=== PATIENT | male | born 1965 | race Caucasian/White ===

== ENCOUNTER 2024-08-11 22:42 | Inpatient (IN) | payer OTHER, SELFPAY ==
[2024-08-11 15:04] VITALS: BP 136/100
[2024-08-11 15:26] LABS: % Basophils 0.3 % (0-2); % Eosinophils 0.4 % (0-6); % Immature Granulocytes 0.4 % (0-0.5); % Lymphocytes 19.9 % (20.5-51.1); % Monocytes 8.5 % (1.7-9.3); % Neutrophils 70.5 % (42.2-75.2); Absolute Eosinophils 0.1 10^3/uL (0-0.7); Absolute Lymphocytes 2.2 10^3/uL (1.2-3.4); Absolute Neutrophils 7.9 10^3/uL (1.4-6.5); Hematocrit 47.6 % (39.0-52.0); Hemoglobin 16.3 g/dL (13.0-18.0); Mean Corp Hgb Conc. 34.2 g/dL (33.0-37.0); Mean Corpuscular Hgb 29.8 pg (27.0-31.0); Mean Platelet Volume 10.3 fL (7.4-10.4); Nucleated Red Blood Cells % 0 % (-); Platelet Count 209 10^3/uL (130-400); Red Blood Cell Count 5.47 10^6/uL (4.70-6.10); Red Cell Dist. Width 14.6 % (11.5-14.5); White Blood Cell Count 11.2 10^3/uL (4.8-10.8)
[2024-08-11 15:32] LABS: ALT (SGPT) 278 U/L (0-50); AST (SGOT) 124 U/L (17-59); Albumin 3.5 g/dl (3.5-5.0); Alkaline Phosphatase 97 U/L (38-126); Blood Urea Nitrogen 34 mg/dl (9-20); Calcium 8.4 mg/dl (8.4-10.2); Carbon Dioxide 23 mmol/L (22-30); Chloride 109 mmol/L (98-107); Glucose 174 mg/dl (70-99); Potassium 4.1 mmol/L (3.5-5.1); Sodium 137 mmol/L (135-145); Total Bilirubin 1.4 mg/dl (0.2-1.3); Total Protein 5.4 g/dl (6.3-8.2); eGFR > 60.00
[2024-08-11 15:42] LABS: NT-proBNP 9520 pg/ml
[2024-08-11 20:24] VITALS: BP 126/97
[2024-08-11 20:31] VITALS: BMI 32.6
--- NOTE | 2024-08-11 20:38 | ED.GENMED ---
History of Present Illness
General
Chief Complaint: Swelling
Source: patient
Time Seen by Provider: 08/11/24 20:24
History of Present Illness
History of Present Illness:
58-year-old male presents to the emergency room for shortness of breath, peripheral edema. Symptoms have been progressive for the past 3 weeks. He was seen by his family doctor by urgent care. He was treated for a respiratory infection with
inhalers, antibiotics and a course of prednisone. Despite this his symptoms have progressed. Patient particularly notes shortness of breath when he tries to lay flat. Patient also is becoming short of breath with exertion. He has to stop and
catch his breath while going up a flight of steps. Patient denies chest pain. Though has been treated for URI has not really had a fever this type of symptom. Last time he had a febrile illness was in February when he had the flu. Patient admits
to drinking socially. He has been drinking at all since he has been feeling unwell but prior to that he was drinking about a sixpack a week. He does not smoke. He denies recreational drug use. Patient noted that his genitals have become quite
edematous.
Past History
Past History
ED Past Medical History: None
ED Past Surgical History: None
Phy Exam
Physical Exam
Physical Exam:
General: Awake, Alert, Oriented X3. Moderate increased work of breathing
Vitals: Tachycardic, tachypneic
Head: Atraumatic
Eyes: Pupils equal, EOMI
Throat: Airway intact, no exudates
Neck: Trachea midline
Lungs: Crackles bilateral
Heart: Regular rate, no murmurs
Abd: Soft, Nontender, No pulsatile mass
Genitalia: Markedly edematous penis and scrotum
Neuro: Nonfocal
Skin: Warm, dry, no rash
Extremities: pulses equal b/l, 3+ edema
Scores
Heart Failure Risk
Heart Failure Risk Score: Yes
History of Stroke or TIA: No
History of intubation for respiratory distress: No
Heart rate on ED arrival >/= 110: Yes
SaO2 <90% on arrival on room air: Yes
HR >/=110 during 3min walk test (or too ill to perform test): Yes
ECG has acute ischemic changes: No
Urea >/=12mmol/L (BUN 33.6mg/dL): Yes
Serum CO2>/=35mmol/L: No
Troponin I or T elevated to NE Level (0.4mg/dL): No
NT-proBNP >/=5,000ng/L (5,000pg/ml): Yes
HF Risk Score: 5
Admission Status: VERY HIGH RISK 39.8% Consider admission to hospital
Course
Orders/Labs/Results
Orders:
Orders
08/11/24 15:07
Electrocardiogram (*1) Urgent
Reason for Study: Shortness of Breath
EKG- Treatment ONCE
08/11/24 15:11
Complete Blood Count/With Diff Urgent
Comprehensive Metabolic Panel Urgent
NT-proBNP Urgent
08/11/24 20:38
CR Chest - 2 Views Urgent
Comment:
Reason For Exam: sob, edema
08/11/24 21:46
Furosemide [Lasix] 40 mg IV NOW STA
08/11/24 22:19
Admit/Transfer Patient As Directed
Co-Sign Provider:
Level of Care: Inpatient admission
Assign to:: Telemetry
Physician / Group: Htay
Diagnosis: CHF
Reason for Telemetry: Acute Heart Failure
Date to Stop Telemetry: 08/14/24
Time to Stop Telemetry: 11:00
Reason for Hospitalization: IV diuretics
Expected length of stay greater than two midnights?: Yes
ELOS- Estimated Length of Stay in days: 3
I certify the patient meets the requirements for IP care: Yes
PRN Pain Medication Management As Directed
May give lesser potent ordered pain med per pt: Yes
preference::
Protocol:: Medication orders for pain may be administered in a
manner that supports deferring to patient preference
when the pt is:
- Requesting an ordered lesser potent pain medication.
Least to most potent pain medications are defined
as: acetaminophen < NSAID < tramadol < opioids
(morphine, oxycodone, hydromorphone).
- Requesting a lesser dose of the same medication IF
ORDERED.
- Requesting a less intrusive route of administration
if both routes are prescribed by the provider (PO <
IV).
08/11/24 22:20
Code Status As Directed
Resuscitation Status: Full Code
08/11/24 23:00
Flush (0.9% Sodium Chloride) [Flush (Nss)] See Dose Instructions IV PER PROTOCOL
08/14/24 11:00
DC Protocol for Telemetry ONCE
Abnormal Lab Results
08/11/24
15:11
WBC 11.2 H 10^3/uL
(4.8-10.8)
RDW 14.6 H %
(11.5-14.5)
Absolute Neuts (auto) 7.9 H 10^3/uL
(1.4-6.5)
Absolute Monos (auto) 1.0 H 10^3/uL
(0.1-0.6)
Lymphocytes % 19.9 L %
(20.5-51.1)
Chloride 109 H mmol/L
(98-107)
BUN 34 H mg/dl
(9-20)
Glucose 174 H mg/dl
(70-99)
Total Bilirubin 1.4 H mg/dl
(0.2-1.3)
AST 124 H U/L
(17-59)
ALT 278 H U/L
(0-50)
Total Protein 5.4 L g/dl
(6.3-8.2)
08/11/24 15:11
08/11/24 15:11
Vital Signs
Initial and Last Documented VS:
Initial Vital Signs
Temp Pulse Resp BP Pulse Ox
98.2 F 114 16 136/100 97
08/11/24 15:04 08/11/24 15:04 08/11/24 15:04 08/11/24 15:04 08/11/24 15:04
Last Documented Vital Signs
Temp Pulse Resp BP Pulse Ox
98.2 F 113 27 122/111 96
08/11/24 15:04 08/11/24 22:28 08/11/24 21:03 08/11/24 22:28 08/11/24 21:07
MDM/Problems Addressed
Differential Diagnosis Includes:
Pneumonia, heart failure, pulmonary embolism, symptomatic anemia
MDM/Problems Addressed:
Patient presents with diffuse swelling. Overall presentation seems highly consistent with congestive heart failure. His labs show a normal hemoglobin. His BUN is mildly elevated. LFTs are mildly elevated which I think is consistent with hepatic
congestion. BNP is markedly elevated at 9520. Chest x-ray shows right sided pleural effusion as well as cardiomegaly. Will start diuresis here in the emergency room. Patient will actually require hospitalization. Given the amount of peripheral
edema and the lack of pleuritic chest pain I do not believe PE is relevant at this point.
*Pulse Oximetry
SaO2: 85
Oxygen Mode of Delivery: Room air
Patient hypoxic: yes
*EKG
Interpreted by ED Provider?: Yes
Interpretation: abnormal
Heart Rate: 115
Rate: tachycardiac
Rhythm: sinus tachycardia
[place]: normal axis
Interval: normal interval
QRS Pattern: normal QRS
Ischemia: non-specific ST changes
*Engine Dispatcher Interpretation
Rate: tachycardiac
Interpretation: abnormal
Rhythm: sinus tachycardia
*Critical Care Note
Total Time (30-74mins, 75-104mins- exclusive of procedures): Not Applicable
ED Attending Note
-
Portions of this chart may have been created with voice recognition software.� Occasional wrong word or��sound alike� substitutions may have occurred due to the inherent limitations of voice recognition software.
Discharge Plan
Departure
Patient Disposition: Admit
Date of Disposition: 08/11/24
Time of Disposition: 21:47
Admit to: Med/Surg
Presentation/result/management discussed w/ accepting MD/DO: Hospitalist
Condition: Fair
Discharge Problem:
CHF (congestive heart failure)
Interventions
Interventions:
*Risk Screen - Suicide Last Done: 08/11/24 15:06
*General Assessment Last Done: 08/11/24 20:36
*Neglect/Abuse Screening Last Done: 08/11/24 15:06
*ED- Fall Risk Assessment Last Done: 08/11/24 20:38
*ED COVID-19 Vaccine History Last Done: 08/11/24 20:38
ED- Cardiac Assessment Last Done: 08/11/24 20:38
ED- Pulmonary Assessment Last Done: 08/11/24 20:38
ED-Skin Assessment Last Done: 08/11/24 20:38
[2024-08-11 21:07] VITALS: BP 123/101
--- NOTE | 2024-08-11 22:16 | W.PN.UPDATE ---
Addendum entered and electronically signed by Eze Mann MD 08/11/24 22:30:
Correction:
58M <del>F</del> no significant PMHx seen at ER:
POS JVD 8-10 cm
Original Note:
Update Note
Progress Note Update
This note serves as an addendum to the H&P by harness brusher QING Zoraida HUITRON
58F no significant PMHx seen at ER:
- for progressive shortness of breath, peripheral edema for the past 3 weeks.
- Recently treated at [facility] for respiratory infection with inhalers, antibiotics and a course of prednisone.
- HX suggestive of Post and orthopnea
- denies chest pain.
- Edema of genitalia
Vitals: Tachycardic, tachypneic
Vital Signs
Temp Pulse Resp BP Pulse Ox
98.2 F 115 27 123/101 96
08/11/24 15:04 08/11/24 21:07 08/11/24 21:03 08/11/24 21:07 08/11/24 21:07
PE
General: dyspnea with minor exertion
Neck:
Lungs: Crackles bilateral
Heart: RRR No murmur
Abd: Soft, Nontender, No pulsatile mass
Genitalia: Markedly edematous penis and scrotum
Neuro: Nonfocal
Extremities: pulses equal b/l, 3+ edema
Relevant Data
Laboratory Tests
08/11/24
15:11
WBC 11.2 H
Chloride 109 H
BUN 34 H
Creatinine 1.0
eGFR > 60.00
Glucose 174 H
Total Bilirubin 1.4 H
AST 124 H
ALT 278 H
Fkx-D-Ggpyjldhokz Pept 9520
CXR
Mild CHF. Small right pleural effusion.
EKG
SINUS TACHYCARDIA
POSSIBLE LEFT ATRIAL ENLARGEMENT
T-WAVE INVERSION IN ANTEROLATERAL LEADS
ABNORMAL ECG
NO PREVIOUS ECGS AVAILABLE
Confirmed by ELLIS HERNANDEZ MD ([id number]) on 08/11/2024 3:37:36 PM
Last hospitalist admission:
ASSESSMENT & PLAN
Dyspneic with minor exertion orthopnea
Clinically suspect NYHA class III/IV CHF
Volume overload with small Rt sided pleural effusion
Anasarca ( B/l Álvaro edema, scrotal edema, Rt small pleural effusion) due to CHF
Acute CHF ( Biventricular HF vs mixed CHF
Normal eGFR
Abnormal transaminase - suspect hepatic venous congestion
Class I ( BMI 32-33) Obesity
At risk or sleep apnea
- IV Lasix 40 BID - f/u daily IOs, daily weight
- daily BMP
- f/u LFTs while IV diuresing
- ECHO
- CBC card consult
Reports snoring when sleep
Suspect undiagnosed CRISTINA
- OP sleep evaulatin
HX ETOH use
- 1 beer a day
DVT Px: LMWH
Full code
IP TLM
--- NOTE | 2024-08-11 22:27 | HPS.HSE ---
Family Physician
-
Family Physician: Radha Salcedo
Chief Complaint
-
Shortness of Breath and Lower Extremity Edema
History of Present Illness
Patient is a 58 y/o male without significant past medical history who presents with increasing shortness of breath and lower extremity edema. Patient reports he was treated for bronchitis earlier this month with inhaler, azithromycin and
prednisone. Patient reports symptoms have continued to worsen. He repors increasing dyspnea on exertion and orthopnea. Over the past few days he has developed worsening lower extremtiy edema that is now extending up into the scrotum, penis and
abdomen. He denies any similar episodes in the past.
Medical History
Past Medical History
Past Medical History: Reports None
Past Surgical History: Reports None
Social History
Tobacco: Non-smoker
Alcohol: Occasional (6-pack of beer per week)
Family History
Family History: Not pertinent
Allergies / Home Medications
Allergies reflects when Allergies were last updated in [facility].
Home Medications with original date entered in [facility]
Allergy/Medication List:
Allergies
Allergy/AdvReac Type Severity Reaction Status Date / Time
No Known Allergies Allergy Verified 08/11/24 14:51
Home Medications
ibuprofen 125 mg-acetaminophen 250 mg tablet (Advil Dual Action) 2 tab PO Q3HPRN PRN MILD PAIN 08/11/24
therapeutic multivitamin 1 tab PO DAILY 08/11/24
Review of Systems
-
A 12 point ROS was completed and negative except as noted: Yes
Constitutional: Denies Fever or Chills
Respiratory: Reports Trouble Breathing; Denies Cough
Cardiac: Denies Chest Pain or Palpitations
Abdomen/GI: Denies Abdominal Pain, Nausea, Vomiting or Diarrhea
Physical Exam
Vital Signs
Vital Signs
Temp Pulse Resp BP Pulse Ox
98.2 F 115 27 123/101 96
08/11/24 15:04 08/11/24 21:07 08/11/24 21:03 08/11/24 21:07 08/11/24 21:07
Physical Exam
General: Comfortable and Conversant
HEENT: Anicteric and Moist mucous membranes
Respiratory: Rales (Bilaterally) and Non Labored Respirations
Cardiac: S1/S2, Regular Rhythm and Tachycardia; No Murmur
GI: Soft and Non Tender
Rectal: Deferred by Provider
Musculoskeletal: No Clubbing, No Cyanosis and Other (+3 pitting edema bilateral lower extremities)
Skin: Warm and Dry
Neuro: Awake, Alert, Oriented and Nonfocal/grossly intact
Psych: Calm
Laboratory Results
-
08/11/24 15:11
08/11/24 15:11
Laboratory Results
Total Bilirubin 1.4 mg/dl (0.2-1.3) H 08/11/24 15:11
AST 124 U/L (17-59) H 08/11/24 15:11
ALT 278 U/L (0-50) H 08/11/24 15:11
Alkaline Phosphatase 97 U/L (38-126) 08/11/24 15:11
Data Reviewed
-
Diagnostic Radiology: Report Reviewed by me
Lab Data: Labs Reviewed by me
Impression/Plan
-
New Onset Acute Heart Failure
-Consult Cardiology
-Check Echocardiogram
-Continue Lasix 40mg IV BID
-Continue low sodium diet
Elevated LFTs, suspect hepatic congestion in setting of acute heart failure
-Continue to trend LFTs
DVT proph: Lovenox
Code Status: Full Code
[2024-08-11 22:28] VITALS: BP 122/111
[2024-08-11] MEDS: LASIX 40 MG IV (22:28)
[2024-08-11] MEDS: FLUSH (NSS) 1 FLUSH IV (22:31)
[2024-08-11 23:00] VITALS: BP 126/99
[2024-08-12] VITALS (7 sets, daily range): BP systolic 116–134; BP diastolic 74–94; BMI 31.5
--- NOTE | 2024-08-12 00:39 | PTCARENOTE ---
Patient arrived to unit around 00:00 via stretcher with dx of CHF. AAOx3. Pleasant and cooperative with care. ROY. 97% room air. Urinal given at bedside. Heart failure packet given and educated patient. Call shetty with in reach. Oriented to unit.
[2024-08-12] MEDS: LIDOCAINE 4% PATCH 1 PATCH TOPICAL (01:50)
[2024-08-12 08:49] LABS: Glycohemoglobin (HgbA1c) 6.3 % (4.0-5.6)
[2024-08-12 09:16] LABS: ALT (SGPT) 264 U/L (0-50); AST (SGOT) 102 U/L (17-59); Albumin 3.4 g/dl (3.5-5.0); Alkaline Phosphatase 74 U/L (38-126); Blood Urea Nitrogen 30 mg/dl (9-20); Calcium 8.3 mg/dl (8.4-10.2); Carbon Dioxide 23 mmol/L (22-30); Chloride 108 mmol/L (98-107); Direct Bilirubin 0.6 mg/dl (0.0-0.4); Estimated Creatinine Clearance 87 ml/min; Glucose 124 mg/dl (70-99); HDL Cholesterol 25 mg/dl; LDL Cholesterol, Calculated 58 mg/dl; Magnesium 2.1 mg/dl (1.6-2.3); Sodium 136 mmol/L (135-145); Total Cholesterol 102 mg/dl (50-199); Total Protein 5.3 g/dl (6.3-8.2); Triglyceride 98 mg/dl (10-149); Very Low Density Lipoprotein 19 mg/dl (0-30); eGFR > 60.00
[2024-08-12] MEDS: LASIX 40 MG IV ×2 (09:28→16:29)
--- NOTE | 2024-08-12 11:10 | CON.CAR ---
Addendum entered and electronically signed by Mc Crouch MD 08/12/24 13:52:
EF 10-15%, mild/mod MR and TR, LV apical thrombus.
We will start heparin drip and transition to eliquis post cath.
Addendum entered and electronically signed by Mc Crouch MD 08/12/24 12:10:
58 yo male with no sig PMH is admitted with weeks of progressive SOB, edema. No chest pain. He was initially treated for URI/bronchitis as outpatient. Exam with tachy, regular rhythm; no murmurs; 2+ LE edema. Tele: SR/ST. Echo: severely reduced
LVEF.
New cardiomyopathy, type unknown. New acute systolic HF, severe.
-start GDMT: Toprol XL and entresto today
-cath tomorrow for ischemic eval
-then assess for farxiga, aldactone
-continue lasix 40mg IV bid, close monitoring of labs/tele
Original Note:
Consultation
Consultation Request
Date/Time Consultation Requested: 08/12/24 0027
Date/Time Consultation Performed: 08/12/24 1112
Requesting Provider: Leslie Gan
Performing Provider: Farnaz MENON for Dr. Crouch
Reason for Consultation: CHF
Medical History
-
Chief Complaint: SOB
History of Present Illness:
58 y/o male with no previous known PMH who is here with 3 weeks of SOB, orthopnea, PND. As OP, he was started on zpak for bronchitis at urgent care and then steroids at PCP office. After starting steroids, he started to notice LE edema. He also has
abdominal bloating. He came to the ER and is admitted with acute HF. He feels improved and is responding to IV diuresis. He is in no distress at the time of my assessment. is at bedside.
Past Medical History
Past Medical History: None
Social History
Tobacco: Non-Smoker
Alcohol: Occasional
Drug: None
Personal:
Living: With Family
Family History
Family History: Other (sister had heart transplant from viral CM, 10 years later. Mom also with CHF, but at older age.)
Allergies / Home Medications
Allergy/AdvReac Type Severity Reaction Status Date / Time
No Known Allergies Allergy Verified 08/11/24 14:51
�Medication �Instructions �Recorded �Confirmed �Type
ibuprofen 125 mg-acetaminophen 250 2 tab PO Q3HPRN PRN MILD PAIN 08/11/24 08/11/24 History
mg tablet (Advil Dual Action)
therapeutic multivitamin 1 tab PO DAILY 08/11/24 08/11/24 History
Review of Systems
-
History Source: Patient
All other systems: Negative unless noted
Respiratory: Trouble Breathing
Musculoskeletal: Edema
Physical Exam
Vital Signs
Temp Pulse Resp BP Pulse Ox
97.9 F 116 16 131/92 97
08/12/24 11:01 08/12/24 11:01 08/12/24 11:01 08/12/24 11:01 08/12/24 11:01
Lab Results
08/11/24 15:11
08/12/24 07:35
Aeh-D-Lgtsywuqtbs Pept 9520 pg/ml 08/11/24 15:11
Physical Exam
General: Well Developed, Well Nourished and No Apparent Distress
HEENT: Normocephalic and Anicteric
Respiratory: Crackles (mild bases) and Non Labored Respirations
Cardiac: Regular Rhythm (ST)
Musculoskeletal: Edema (mild BLE)
Skin: Warm and Dry
Neuro: AO x 3
Psych: Calm
Impression / Plan
-
Acute HFrEF:
-official echo report pending, but preliminary finds with reduced EF
-plan for cardiac cath tomorrow- will add aspirin for now for this
-agree with IV diuresis, which requires intensive monitoring
-CHF education
CM, type unknown:
-work-up as above
-otherwise, will plan to initiate GDMT- will involve CM for entresto and SGLT2I to assess pricing
PreDM:
-hgbA1C 6.3
-management per primary
Elevated LFT's:
-in setting of acute CHF
-monitor
Data Reviewed
-
EKG: Tracing Personally Visualized and interpreted (ST, lateral t wave inversions)
Radiology: Report Reviewed by me (CXR: Mild CHF. Small right pleural effusion.)
Medical Tests (Nuc Med, Echo etc): Other (echo ordered and performed, results pending)
Labs: Labs Reviewed by me
--- NOTE | 2024-08-12 11:32 | CARDSERVLU ---
Echocardiogram with Lumason completed after protocol screening completed. Allergies verified.
Patent IV site:Right arm median cubital 20 G PC
IV site flushed with 0.9% NaCl pre and post administration.
Diluted bolus method utilized to enhance visualization of ventricular rogers.
Total volume given: __3__ mL
Patient tolerated all procedures well without complications.
[2024-08-12] MEDS: ASPIRIN 325 MG PO (12:45)
[2024-08-12] MEDS: TOPROL XL 25 MG PO ×2 (12:47→19:58)
[2024-08-12 13:16] LABS: Hematocrit 50.7 % (39.0-52.0); Hemoglobin 16.7 g/dL (13.0-18.0); Mean Corp Hgb Conc. 32.9 g/dL (33.0-37.0); Mean Corpuscular Hgb 29.6 pg (27.0-31.0); Mean Corpuscular Volume 89.9 fL (80.0-94.0); Mean Platelet Volume 10.3 fL (7.4-10.4); Platelet Count 202 10^3/uL (130-400); Red Blood Cell Count 5.64 10^6/uL (4.70-6.10); Red Cell Dist. Width 14.9 % (11.5-14.5); White Blood Cell Count 13.5 10^3/uL (4.8-10.8)
--- NOTE | 2024-08-12 13:30 | CM ---
CM reviewed chart, received consult for hinojosa check: Entresto 24/26 mg PO BID, Jardiance 10 mg, Farxiga 10 mg- CM spoke with patients pharmacy ([facility])- confirmed prescription coverage through [facility]: MAURA
#[id number], BIN: [id number], per pharmacist: Entresto 24/26 mg PO BID 30 day supply $615.00, Jardiance 10 mg 30 day supply $247.00, Farxiga 10 mg 30 day supply $86.00, update to Cardiology. Patient seen bedside, provided cost of medications, will provide
coupon.
Patient resides with his in a multiple story home, one step to enter, full flight to second floor. Patient is independent with ADLS/IADLS, denies use of DME, VN, or SNF. Patient confirms PCP Radha Salcedo, pharmacy [facility],
confirms prescription coverage. Patient for cardiac cath tomorrow. CM will continue to follow for all discharge planning needs.
Plan; cardiac cath tomorrow, home with when stable, will need coupon for meds
--- NOTE | 2024-08-12 13:45 | W.PN.HOSP.TC ---
Today's Communication/Plan
-
for heart cath
full does Heparin
Assessment / Plan
Assessment / Plan
New Onset Acute Heart Failure
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
- Cardiology input appreciated
plan heart cath
-Check Echocardiogram: Left ventricle is severely dilated. Severely reduced left ventricular systolic
function. LVEF is 10-15%.
Mild/moderate mitral regurgitation.
Enlarged right ventricular size. Reduced right ventricular systolic function.
Mild/moderate tricuspid regurgitation. Moderately elevated PASP. Estimated
pulmonary artery pressure of 47 mmHg assuming a right atrial pressure of 15
mmHg.
There is evidence of nascent thrombus formation in the LV apex.
No prior study available for comparison.
-Continue Lasix 40mg IV BID
-Continue low sodium diet
started on full dose heparin because of thrombus formation
Elevated LFTs, suspect hepatic congestion in setting of acute heart failure
-Continue to trend LFTs
DVT proph: Lovenox
Code Status: Full Code
Anticipated Discharge: > 48 hours
Subjective/Interval History
-
Date of Service: August 12, 2024
Never had chest pain, sob worsening past 3 weeks
Objective Data
-
Labs:
Laboratory Results
08/12/24 08/12/24
07:35 13:02
WBC 13.5 H
Hgb 16.7
Hct 50.7
Plt Count 202
APTT 28.0
Sodium 136
Potassium 4.0
Chloride 108 H
Carbon Dioxide 23
BUN 30 H
Creatinine 1.0
Glucose 124 H
Calcium 8.3 L
Total Bilirubin 2.0 H
AST 102 H
ALT 264 H
Alkaline Phosphatase 74
Vital Signs:
Vital Signs
Temp Pulse Resp BP Pulse Ox
97.9 F 116 16 131/92 97
08/12/24 11:01 08/12/24 11:01 08/12/24 11:01 08/12/24 11:01 08/12/24 11:01
I&O
08/11/24 08/12/24 08/13/24
06:59 06:59 06:59
Intake Total 480 / 480
Output Total 2350 / 2350
Balance -1870 / -1870
Review of Systems
-
History Source: Patient and Family ( in room)
Constitutional: Denies Fever
Respiratory: Reports Trouble Breathing (shortness of breath); Denies Cough
Cardiac: Denies Chest Pain
Abdomen/GI: Reports No Symptoms
Musculoskeletal: Reports No Symptoms
Physical Exam
-
General: Well Developed, Well Nourished and No Apparent Distress
HEENT: Normocephalic and Atraumatic
Respiratory: Rales (bibasilar rales)
Cardiac: Regular Rhythm and S1/S2
GI: Soft, Nontender and Nondistended
Genito-urinary: No Costovertebral Tender
Musculoskeletal: No Clubbing, No Cyanosis and No Edema (trace)
Skin: Warm and Dry
Neuro: Awake and Alert
[2024-08-12] MEDS: HEPARIN 4000 UNITS IV (14:18)
[2024-08-12] MEDS: HEPARIN 25000 UNITS/250 ML IV (14:20)
[2024-08-12] MEDS: ENTRESTO 24 MG/26 MG 1 TAB PO (19:58)
[2024-08-12 21:39] LABS: APTT 35.2 Sec (23.4-35.0)
[2024-08-13] VITALS (11 sets, daily range): BP systolic 92–127; BP diastolic 65–89; BMI 29.9
[2024-08-13 04:22] LABS: APTT 36.6 Sec (23.4-35.0)
[2024-08-13 04:42] LABS: Blood Urea Nitrogen 27 mg/dl (9-20); Calcium 8.4 mg/dl (8.4-10.2); Carbon Dioxide 31 mmol/L (22-30); Chloride 104 mmol/L (98-107); Estimated Creatinine Clearance 97 ml/min; Glucose 108 mg/dl (70-99); Potassium 4.3 mmol/L (3.5-5.1); Sodium 138 mmol/L (135-145); eGFR > 60.00
[2024-08-13] MEDS: LOW STRENGTH ASPIRIN 81 MG PO (10:16)
[2024-08-13] MEDS: ENTRESTO 24 MG/26 MG 1 TAB PO ×2 (10:16→20:03)
[2024-08-13] MEDS: TOPROL XL 25 MG PO ×2 (10:16→20:03)
[2024-08-13] MEDS: LASIX 40 MG IV ×2 (10:17→17:17)
[2024-08-13] MEDS: FLUSH (NSS) 1 FLUSH IV (10:18)
[2024-08-13] MEDS: HEPARIN 25000 UNITS/250 ML IV (10:21)
[2024-08-13 10:51] LABS: APTT 53.4 Sec (23.4-35.0)
--- NOTE | 2024-08-13 10:53 | CM ---
Met with patient at bedside; he reported that heart catheterization is scheduled for today
Plan: Discharge to home when medically stable; pillowcase turner will continue to monitor and support discharge needs when determined
--- NOTE | 2024-08-13 12:02 | ITS.CL.PN ---
Universal Grinder Operator - Procedure Note
Procedure
Procedure Note:
CARDIAC CATHETERIZATION REPORT
Date of Procedure: 08/13/2024
Referring: Dr. Benny Crouch MD, PhD
Indication: Heart failure with severely reduced ejection fraction
PROCEDURE(S)
1. right heart catheterization
2. coronary angiography
ACCESS
1. 6F right radial artery (closure: radial band)
2. 5F right antecubital vein (closure: manual hemostasis)
CATHETERS
1. 5F [place]
2. 6F JR4
3. 6F JL3.5
MODERATE SEDATION: 25 minutes of moderate sedation was utilized. An independent lpn medical assistant was present to assist with and help manage the patient's level of consciousness and physiologic status.
HEMODYNAMIC DATA
AO 112/85 (mean 96) mmHg
RA 17 mmHg
RV 43/15 (EDP 20) mmHg
PA 45/25 (mean 33) mmHg
PCWP 26 mmHg
SaO2 91.9%
SvO2 62.4%
Hb 16.9 g/dL
CO/CI 3.7/1.84 L/min/m2
SVR 1689 dsc*-5
PVR 1.9 Wood units
CORONARY ANGIOGRAPHY
Dominance: Left
LM: Short vessel with no significant disease
LAD: Large vessel giving rise to a small D1, moderate caliber D2, and small D3 before wrapping around the apex. There are trivial luminal irregularities only.
LCx: Large vessel giving rise to a large branching OM1, small OM 2, small LPL, and moderate caliber L PDA. There are mild luminal irregularities only.
RCA: Moderate caliber nondominant vessel with minimal disease.
RADIATION: dose 284 mGy; DAP 18.6 Gy*cm2; fluoroscopy time 3.1 min
CONCLUSIONS
1. Nonobstructive coronary artery disease in a left dominant system as described
2. Severely elevated biventricular filling pressures, moderate postcapillary pulmonary hypertension, and severely reduced cardiac index.
RECOMMENDATIONS
1. Further titration of GDMT for heart failure with reduced ejection fraction
2. Further workup for etiology of nonischemic cardiomyopathy
3. Primary prevention of coronary artery disease
Copy to: RASHAWN Hawkins (PCP)
Signed: Robert Loomis MD, PhD
--- NOTE | 2024-08-13 12:14 | W.PN.CD ---
Today's Communication / Plan
-
normal coronary arteries on cath with elevated filling pressures
cont. diuresis
cont. titration of GDMT
transition to apixaban for LV thrombus
workup for etiology of NICM
Impression / Plan
-
Acute HFrEF:
-severely reduced EF on echo
-LHC with elevated biventricular filling pressures, CI 1.8, minimal CAD
-cont. IV diuresis
-GDMT: currently on metop 25 BID, low dose Entresto; adding carlo 25, dapa 10 today; next move will be uptitrating metop/entresto to max tolerated doses
-CHF education
CM, type unknown:
-needs workup for etiology of NICM - TFT normal, sending iron/B12/folate/HIV/Hepatitis
PreDM:
-hgbA1C 6.3
-management per primary
Elevated LFT's:
-in setting of acute CHF
-monitor
Physical Exam
Vital Signs/Labs
Vital Signs
Temp Pulse Resp BP Pulse Ox
36.5 C 107 18 117/82 94
08/13/24 12:00 08/13/24 12:00 08/13/24 12:00 08/13/24 12:00 08/13/24 12:00
08/12/24 08/13/24 08/14/24
06:59 06:59 06:59
Actual Weight 93.979 kg 89.159 kg
08/12/24 13:02
08/13/24 03:48
APTT 53.4 Sec (23.4-35.0) H 08/13/24 10:24
Magnesium 2.1 mg/dl (1.6-2.3) 08/12/24 07:35
Triglycerides 98 mg/dl (10-149) 08/12/24 07:35
LDL Cholesterol, Calc 58 mg/dl 08/12/24 07:35
VLDL Cholesterol, Calc 19 mg/dl (0-30) 08/12/24 07:35
HDL Cholesterol 25 mg/dl 08/12/24 07:35
08/11/24
15:11
Mxw-M-Hrhpdntrpms Pept 9520
Physical Exam
Cardiovascular: Rhythm & rate is regular
Respiratory: Respiratory effort normal
Neuro/Psych: AO x 3
Data Reviewed
-
Date of Service: August 13, 2024
Medical Decision Making: Reviewed Test Results
EKG: Tracing Personally Visualized and interpreted
Echo: Tracing Personally Visualized and interpreted
Labs: Labs Reviewed by me
--- NOTE | 2024-08-13 13:09 | W.PN.HOSP.TC ---
Addendum entered and electronically signed by Richi Carr MD 08/13/24 13:24:
Pt notes that he had influenza in February
Original Note:
Today's Communication/Plan
-
GDMT
Assessment / Plan
Assessment / Plan
New Onset Acute Heart Failure
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
- Cardiology input appreciated
heart cath: 1. Nonobstructive coronary artery disease in a left dominant system as described
2. Severely elevated biventricular filling pressures, moderate postcapillary pulmonary hypertension, and severely reduced cardiac index.
RECOMMENDATIONS
1. Further titration of GDMT for heart failure with reduced ejection fraction
2. Further workup for etiology of nonischemic cardiomyopathy
3. Primary prevention of coronary artery disease
-Check Echocardiogram: Left ventricle is severely dilated. Severely reduced left ventricular systolic
function. LVEF is 10-15%.
Mild/moderate mitral regurgitation.
Enlarged right ventricular size. Reduced right ventricular systolic function.
Mild/moderate tricuspid regurgitation. Moderately elevated PASP. Estimated
pulmonary artery pressure of 47 mmHg assuming a right atrial pressure of 15
mmHg.
There is evidence of nascent thrombus formation in the LV apex.
No prior study available for comparison.
-Continue Lasix 40mg IV BID
-Continue low sodium diet
started on full dose heparin because of thrombus formation. To be changed to Eliquis.
Elevated LFTs, suspect hepatic congestion in setting of acute heart failure
-Continue to trend LFTs
To start Entresto, Farxiga and Aldactone. Continue IV Lasix and Toprol
DVT proph: Lovenox
Code Status: Full Code
Anticipated Discharge: > 48 hours
Subjective/Interval History
-
Date of Service: August 13, 2024
Feels better today
Objective Data
-
Labs:
Laboratory Results
08/13/24 08/13/24
03:48 10:24
APTT 36.6 H 53.4 H
Sodium 138
Potassium 4.3
Chloride 104
Carbon Dioxide 31 H
BUN 27 H
Creatinine 0.9
Glucose 108 H
Calcium 8.4
Vital Signs:
Vital Signs
Temp Pulse Resp BP Pulse Ox
97.9 F 100 17 111/74 94
08/13/24 12:45 08/13/24 12:45 08/13/24 12:45 08/13/24 12:45 08/13/24 12:45
I&O
08/12/24 08/13/24 08/14/24
06:59 06:59 06:59
Intake Total 480 / 480 1102 / 1102
Output Total 2350 / 2350 4450 / 4450
Balance -1870 / -1870 -3348 / -3348
Review of Systems
-
History Source: Patient and Coordinated Provider
Constitutional: Denies Fever
Respiratory: Reports Trouble Breathing (shortness of breath); Denies Cough
Cardiac: Denies Chest Pain
Abdomen/GI: Reports No Symptoms
Musculoskeletal: Reports No Symptoms
Physical Exam
-
General: Well Developed, Well Nourished and No Apparent Distress
HEENT: Normocephalic and Atraumatic
Respiratory: Rales (bibasilar rales)
Cardiac: Regular Rhythm and S1/S2
GI: Soft, Nontender and Nondistended
Genito-urinary: No Costovertebral Tender
Musculoskeletal: No Clubbing, No Cyanosis and No Edema (trace)
Skin: Warm and Dry
Neuro: Awake and Alert
[2024-08-13] MEDS: FARXIGA 10 MG PO (13:29)
[2024-08-13] MEDS: ALDACTONE 25 MG PO (13:29)
[2024-08-13] MEDS: FLUSH (NSS) 2 FLUSH IV (17:19)
[2024-08-13] MEDS: ELIQUIS 5 MG PO (20:03)
[2024-08-14 03:00] VITALS: BP 103/74
[2024-08-14 05:20] VITALS: BMI 28.5
[2024-08-14 07:09] VITALS: BP 109/78
[2024-08-14 09:20] LABS: Hematocrit 51.1 % (39.0-52.0); Hemoglobin 17.2 g/dL (13.0-18.0); Mean Corp Hgb Conc. 33.7 g/dL (33.0-37.0); Mean Corpuscular Hgb 29.6 pg (27.0-31.0); Mean Corpuscular Volume 87.8 fL (80.0-94.0); Mean Platelet Volume 10.6 fL (7.4-10.4); Platelet Count 183 10^3/uL (130-400); Red Blood Cell Count 5.82 10^6/uL (4.70-6.10); Red Cell Dist. Width 14.4 % (11.5-14.5); White Blood Cell Count 9.3 10^3/uL (4.8-10.8)
[2024-08-14] MEDS: LASIX 40 MG IV ×2 (09:31→15:40)
[2024-08-14] MEDS: ENTRESTO 24 MG/26 MG 1 TAB PO ×2 (09:34→20:26)
[2024-08-14] MEDS: ALDACTONE 25 MG PO (09:34)
[2024-08-14] MEDS: ELIQUIS 5 MG PO ×2 (09:34→20:25)
[2024-08-14] MEDS: TOPROL XL 25 MG PO (09:35)
[2024-08-14] MEDS: FARXIGA 10 MG PO (09:35)
[2024-08-14] MEDS: LOW STRENGTH ASPIRIN 81 MG PO (09:35)
[2024-08-14 09:52] LABS: Blood Urea Nitrogen 24 mg/dl (9-20); Calcium 8.3 mg/dl (8.4-10.2); Carbon Dioxide 24 mmol/L (22-30); Chloride 106 mmol/L (98-107); Estimated Creatinine Clearance 84 ml/min; Glucose 113 mg/dl (70-99); Iron 44 ug/dl (49-181); Sodium 136 mmol/L (135-145); eGFR > 60.00
[2024-08-14 10:06] LABS: Percent Saturation 13 % (20-50); Total Iron Binding Capacity 315 ug/dl (261-462)
[2024-08-14 11:07] VITALS: BP 105/68
[2024-08-14 11:52] LABS: Hepatitis B Surface Antigen Negative (Negative)
[2024-08-14 12:06] LABS: Folate 14.4 ng/ml (2.76-20); Vitamin B12 940 pg/ml (239-931)
[2024-08-14 12:10] LABS: Hepatitis B Core Ab, Total Reactive (Negative); Hepatitis B Surface Antibody Negative; Hepatitis C Antibody Reactive (Negative)
--- NOTE | 2024-08-14 12:12 | CM ---
CM reviewed chart, patient seen bedside with , reports no concerns to CM at this time. CM will place coupons on chart. CM will continue to follow for all discharge planning needs.
Plan; home no needs
[2024-08-14 13:02] LABS: Hepatitis B Core Ab, IgM Negative (Negative)
[2024-08-14 13:06] LABS: HIV Combo Negative (Negative)
--- NOTE | 2024-08-14 14:04 | W.PN.CD ---
Today's Communication / Plan
-
tolerating GDMT titration
cont. diuresis
inc. metop to 50 BID
Impression / Plan
-
Acute HFrEF:
-severely reduced EF on echo
-LHC with elevated biventricular filling pressures, CI 1.8, minimal CAD
-cont. IV diuresis until definitively euvolemic
-GDMT: currently on metop 25 BID will increase to 50 BID, cont. low dose Entresto; added carlo 08/14, added dapa 08/14; can continue to uptitrate as tolerated, next move would be mid-dose entresto if BP room
-CHF education
CM, type unknown:
-needs workup for etiology of NICM - TFT normal, sending iron/B12/folate/HIV/Hepatitis sent, cMRI as outpatient
PreDM:
-hgbA1C 6.3
-management per primary
Elevated LFT's:
-in setting of acute CHF
-monitor
Physical Exam
Vital Signs/Labs
Vital Signs
Temp Pulse Resp BP Pulse Ox
36.6 C 107 20 105/68 97
08/14/24 11:07 08/14/24 11:07 08/14/24 11:07 08/14/24 11:07 08/14/24 11:07
08/13/24 08/14/24 08/15/24
06:59 06:59 06:59
Actual Weight 89.159 kg 84.935 kg
08/14/24 07:59
08/14/24 07:59
APTT 53.4 Sec (23.4-35.0) H 08/13/24 10:24
Magnesium 2.1 mg/dl (1.6-2.3) 08/12/24 07:35
Triglycerides 98 mg/dl (10-149) 08/12/24 07:35
LDL Cholesterol, Calc 58 mg/dl 08/12/24 07:35
VLDL Cholesterol, Calc 19 mg/dl (0-30) 08/12/24 07:35
HDL Cholesterol 25 mg/dl 08/12/24 07:35
08/11/24
15:11
Cjy-B-Yufpnankppl Pept 9520
Physical Exam
Constitutional: Comfortable
Cardiovascular: Rhythm & rate is regular
Respiratory: Respiratory effort normal
Neuro/Psych: AO x 3
Data Reviewed
-
Date of Service: August 14, 2024
Medical Decision Making: Reviewed Test Results
Labs: Labs Reviewed by me
--- NOTE | 2024-08-14 14:19 | W.PN.HOSP.TC ---
Today's Communication/Plan
-
increase Toprol XL
recheck labs in AM
potential dc tomorrow
Assessment / Plan
Assessment / Plan
New Onset Acute Heart Failure
symptoms began ~3 wks STONE CUTTER
- Cardiology input appreciated
heart cath: 1. Nonobstructive coronary artery disease in a left dominant system as described
2. Severely elevated biventricular filling pressures, moderate postcapillary pulmonary hypertension, and severely reduced cardiac index.
RECOMMENDATIONS
1. Further titration of GDMT for heart failure with reduced ejection fraction
2. Further workup for etiology of nonischemic cardiomyopathy
3. Primary prevention of coronary artery disease
-Echocardiogram: Left ventricle is severely dilated. Severely reduced left ventricular systolic
function. LVEF is 10-15%.
Mild/moderate mitral regurgitation.
Enlarged right ventricular size. Reduced right ventricular systolic function.
Mild/moderate tricuspid regurgitation. Moderately elevated PASP. Estimated
pulmonary artery pressure of 47 mmHg assuming a right atrial pressure of 15
mmHg.
There is evidence of nascent thrombus formation in the LV apex.
No prior study available for comparison.
-Continue Lasix 40mg IV BID
-Continue low sodium diet
started on full dose heparin because of thrombus formation was changed to Eliquis.
Pt noted to be tachycardic with HR 105-110. Call placed and discussed with Dr. Loomis, will increase Toprol XL to 50 mg q12h
Elevated LFTs, suspect hepatic congestion in setting of acute heart failure
-Continue to trend LFTs
Now on Entresto / bid, Farxiga 10 mg daily and Aldactone 25 daily. Continue IV Lasix and Toprol
DVT proph: Lovenox
Code Status: Full Code
Anticipated Discharge: 24 - 48 hours
Subjective/Interval History
-
Date of Service: August 14, 2024
Generally feeling better
Objective Data
-
Labs:
Laboratory Results
08/14/24
07:59
WBC 9.3
Hgb 17.2
Hct 51.1
Plt Count 183
Sodium 136
Potassium 4.0
Chloride 106
Carbon Dioxide 24
BUN 24 H
Creatinine 0.9
Glucose 113 H
Calcium 8.3 L
Vital Signs:
Vital Signs
Temp Pulse Resp BP Pulse Ox
98 F 107 20 105/68 97
08/14/24 11:07 08/14/24 11:07 08/14/24 11:07 08/14/24 11:07 08/14/24 11:07
I&O
08/13/24 08/14/24 08/15/24
06:59 06:59 06:59
Intake Total 1102 / 1102 1180 / 1180 480 / 480
Output Total 4450 / 4450 4925 / 4925
Balance -3348 / -3348 -3745 / -3745 480 / 480
Review of Systems
-
History Source: Patient and Coordinated Provider
Constitutional: Denies Fever
Respiratory: Reports Trouble Breathing (shortness of breath, slightly better); Denies Cough
Cardiac: Denies Chest Pain
Abdomen/GI: Reports No Symptoms
Musculoskeletal: Reports No Symptoms
Physical Exam
-
General: Well Developed, Well Nourished and No Apparent Distress
HEENT: Normocephalic and Atraumatic
Cardiac: Regular Rhythm and S1/S2
GI: Soft, Nontender and Nondistended
Genito-urinary: No Costovertebral Tender
Musculoskeletal: No Clubbing and No Cyanosis; Negative No Edema (trace resolved)
Skin: Warm and Dry
Neuro: Awake, Alert and Oriented
[2024-08-14 15:14] VITALS: BP 98/62
[2024-08-14 19:17] VITALS: BP 96/61
[2024-08-14] MEDS: TOPROL XL 50 MG PO (20:27)
[2024-08-14 23:18] VITALS: BP 113/71
[2024-08-15 03:22] VITALS: BP 108/73
[2024-08-15 06:00] VITALS: BMI 27.4
[2024-08-15 07:25] VITALS: BP 112/81
[2024-08-15] MEDS: FARXIGA 10 MG PO (08:19)
[2024-08-15] MEDS: ENTRESTO 24 MG/26 MG 1 TAB PO (08:19)
[2024-08-15] MEDS: LASIX 40 MG IV (08:20)
[2024-08-15] MEDS: ALDACTONE 25 MG PO (08:20)
[2024-08-15] MEDS: ELIQUIS 5 MG PO (08:20)
[2024-08-15] MEDS: TOPROL XL 50 MG PO (08:20)
[2024-08-15 09:22] LABS: ALT (SGPT) 114 U/L (0-50); AST (SGOT) 30 U/L (17-59); Albumin 3.5 g/dl (3.5-5.0); Alkaline Phosphatase 63 U/L (38-126); Blood Urea Nitrogen 26 mg/dl (9-20); Calcium 8.4 mg/dl (8.4-10.2); Carbon Dioxide 26 mmol/L (22-30); Chloride 107 mmol/L (98-107); Estimated Creatinine Clearance 84 ml/min; Glucose 137 mg/dl (70-99); Potassium 4.3 mmol/L (3.5-5.1); Sodium 139 mmol/L (135-145); Total Bilirubin 1.3 mg/dl (0.2-1.3); Total Protein 5.8 g/dl (6.3-8.2); eGFR > 60.00
--- NOTE | 2024-08-15 10:01 | W.PN.CD ---
Today's Communication / Plan
-
Toprol XL 50mg bid, entresto 24/26mg bid, farxiga 10mg daily, aldactone 25mg daily, lasix 40mg daily
-we will arrange for BMP in one week, and office follow up in 2 weeks
Impression / Plan
-
Acute HFrEF, NICM EF 10-15%
-severely reduced EF on echo
-LHC with elevated biventricular filling pressures, CI 1.8, minimal CAD
-now euvolemic at 81-82 kg (94 kg on admit)
-Toprol XL 50mg bid, entresto 24/26mg bid, farxiga 10mg daily, aldactone 25mg daily, lasix 40mg daily
-we will arrange for BMP in one week, and office follow up in 2 weeks
-assess to titrate entresto and Torpol at OV
-echo at 3 months for ICD eval
-to discuss cMRI as outpatient for NICM
LV thrombus
-eliquis 5mg bid
-repeat echo in 3 months to see if we can stop OAC
Mild/moderate MR and TR
Physical Exam
Vital Signs/Labs
Vital Signs
Temp Pulse Resp BP Pulse Ox
97.8 F 100 16 112/81 98
08/15/24 07:25 08/15/24 07:25 08/15/24 07:25 08/15/24 07:25 08/15/24 07:25
08/14/24 08/15/24 08/16/24
06:59 06:59 06:59
Actual Weight 84.935 kg 81.732 kg
08/14/24 07:59
08/15/24 08:30
APTT 53.4 Sec (23.4-35.0) H 08/13/24 10:24
Magnesium 2.1 mg/dl (1.6-2.3) 08/12/24 07:35
Triglycerides 98 mg/dl (10-149) 08/12/24 07:35
LDL Cholesterol, Calc 58 mg/dl 08/12/24 07:35
VLDL Cholesterol, Calc 19 mg/dl (0-30) 08/12/24 07:35
HDL Cholesterol 25 mg/dl 08/12/24 07:35
08/11/24
15:11
Fhb-L-Xahnkwwjqhz Pept 9520
Physical Exam
Constitutional: No acute distress and Comfortable
EENT: Moist mucous membranes
Cardiovascular: Rhythm & rate is regular, Pedal edema is absent, Systolic murmur absent and JVD present
Respiratory: Respiratory effort normal and Lungs clear to auscul.
Neuro/Psych: AO x 3
Data Reviewed
-
Date of Service: August 15, 2024
EKG: Other (Tele: SR 90s, PVC's, brief SVT)
Labs: Labs Reviewed by me
--- NOTE | 2024-08-15 10:39 | W.PN.HOSP.TC ---
Today's Communication/Plan
-
dc to home
Assessment / Plan
Assessment / Plan
New Onset Acute Heart Failure
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
- Cardiology input appreciated
heart cath: 1. Nonobstructive coronary artery disease in a left dominant system as described
2. Severely elevated biventricular filling pressures, moderate postcapillary pulmonary hypertension, and severely reduced cardiac index.
RECOMMENDATIONS
1. Further titration of GDMT for heart failure with reduced ejection fraction
2. Further workup for etiology of nonischemic cardiomyopathy
3. Primary prevention of coronary artery disease
-Echocardiogram: Left ventricle is severely dilated. Severely reduced left ventricular systolic
function. LVEF is 10-15%.
Mild/moderate mitral regurgitation.
Enlarged right ventricular size. Reduced right ventricular systolic function.
Mild/moderate tricuspid regurgitation. Moderately elevated PASP. Estimated
pulmonary artery pressure of 47 mmHg assuming a right atrial pressure of 15
mmHg.
There is evidence of nascent thrombus formation in the LV apex.
No prior study available for comparison.
-Continue Lasix 40mg IV BID
-Continue low sodium diet
started on full dose heparin because of thrombus formation was changed to Eliquis.
Pt noted to be tachycardic with HR 105-110. Call placed and discussed with Dr. Loomis, increased Toprol XL to 50 mg q12h. HR now ~100
Elevated LFTs, suspect hepatic congestion in setting of acute heart failure
-Continue to trend LFTs
Now on Entresto 24/26 bid, Farxiga 10 mg daily and Aldactone 25 daily, Toprol XL 50 bid, Lasix 40 mg daily, Eliquis 5 mg bid
wt 97.1-->81.7kg
DVT proph: Eliquis
Code Status: Full Code
dc now
see dictated note
More than 30 minutes spent in discharge including
Final examination of the patient
Summarizing hospital stay
Instructions for continuing care to all relevant caregivers
Preparation of discharge records, prescriptions, and referral forms
Total time spent (in minutes): 45
Anticipated Discharge: Today
Subjective/Interval History
-
Date of Service: August 15, 2024
Generally feeling better
Objective Data
-
Labs:
Laboratory Results
08/15/24
08:30
Sodium 139
Potassium 4.3
Chloride 107
Carbon Dioxide 26
BUN 26 H
Creatinine 0.9
Glucose 137 H
Calcium 8.4
Total Bilirubin 1.3
AST 30
ALT 114 H
Alkaline Phosphatase 63
Vital Signs:
Vital Signs
Temp Pulse Resp BP Pulse Ox
97.8 F 100 16 112/81 98
08/15/24 07:25 08/15/24 07:25 08/15/24 07:25 08/15/24 07:25 08/15/24 07:25
I&O
08/14/24 08/15/24 08/16/24
06:59 06:59 06:59
Intake Total 1180 / 1180 1200 / 1200 600 / 600
Output Total 4925 / 4925 3900 / 3900
Balance -3745 / -3745 -2700 / -2700 600 / 600
Review of Systems
-
History Source: Patient and Coordinated Provider
Constitutional: Denies Fever
Respiratory: Reports Trouble Breathing (shortness of breath, better, not back to baseline); Denies Cough
Cardiac: Denies Chest Pain
Abdomen/GI: Reports No Symptoms
Musculoskeletal: Reports No Symptoms
Physical Exam
-
General: Well Developed, Well Nourished and No Apparent Distress
HEENT: Normocephalic and Atraumatic
Respiratory: Clear to Auscultation (no rales)
Cardiac: Regular Rhythm and S1/S2
GI: Soft, Nontender and Nondistended
Genito-urinary: No Costovertebral Tender
Musculoskeletal: No Clubbing and No Cyanosis; Negative No Edema (trace resolved)
Skin: Warm and Dry
Neuro: Awake, Alert and Oriented
--- NOTE | 2024-08-15 10:55 | CM ---
Per hospitalist, patient will d/c today
Coupons for Entresto and Eliquis provided to patient. No concerns reported at this time
Spouse will transport home
Plan: Home, no needs
--- NOTE | 2024-08-15 11:00 | W.DS.TRANS ---
DC Summary - Automotive Machinist
-
Discharge Instructions:
Discharge Diagnosis/Procedures Cardiomyopathy/heart catherization
Diet Low Sodium
Activity No strenuous activity
Driving Restrictions limit driving until seen by doctor
Bathing Restrictions None
Blood Work BMP in 1 week, results to Dr. Crouch
Instructions: *PCP/Other Planning Technician Heart Failure Instructions
Stand-Alone Forms: DC Instructions- Cath/EP Lab
Changes to Home Medications: Yes
Discharge Medications:
DC Medications w/original date entered in [employer]
therapeutic multivitamin 1 tab PO DAILY Supplement 08/11/24
apixaban 5 mg tablet (Eliquis) 5 mg PO BID #60 tabs 08/15/24
dapagliflozin propanediol 10 mg tablet 10 mg PO DAILY #30 tabs 08/15/24
furosemide 40 mg tablet 40 mg PO DAILY #30 tabs 08/15/24
metoprolol succinate 50 mg tablet,extended release 24 hr 50 mg PO BID #60 tabs 08/15/24
sacubitril 24 mg-valsartan 26 mg tablet (Entresto) 1 tab PO BID #60 tabs 08/15/24
spironolactone 25 mg tablet 25 mg PO DAILY #30 tabs 08/15/24
Home Medication Changes
all above meds except the vitamin are new
stop Ibuprofen
Pending Results: No
[2024-08-16 04:32] LABS: Transferrin 223 mg/dL (200-360)
--- NOTE | 2024-08-17 13:32 | W.HF.CON ---
Heart Failure
- LV Function
Left ventricular function study result: LV Ejection fraction </= 35%
Ejection Fraction Percentage: 10-15
- ARNI
Patient already on ARNI: Yes
- ACEI/ARB
Patient already on ACEI/ARB: No
Heart Failure ACEI/ARB Not Indicated: Patient ordered/on ARNI
- Beta Jason
Patient already on Evidence Based Beta Jason: Yes
- Mineralocorticord Receptor Antagonist
Patient already on MRA: Yes
- SGLT-2 Inhibitor
Patient already on SGLT-2 Inhibitor: Yes
- NYHA CHF Classification
NYHA CHF Classification Level: Class III - Symptoms w/ min exertion, interferes w/ nml daily activity
- ACC/AHA Stage
ACC/AHA Stage: Stage C: Symptomatic Heart Failure
== END 2024-08-15 12:43 | disposition home or self-care (01) | DRG 287 ==
LOC: 4 WEST ACU 22:42
PROVIDERS: Emergency Medicine; Nurse Practitioner; Physician Assistant Medical; Student in an Organized Health Care Education/Training Program; ADMITTING PHYSICIAN Internal Medicine; ATTENDING PHYSICIAN Internal Medicine; EMERGENCY PHYSICIAN Emergency Medicine; FAMILY PHYSICIAN Physician Assistant; OTHER PHYSICIAN Internal Medicine
PROC: B2111ZZ Fluoroscopy of Multiple Coronary Arteries using Low Osmolar Contrast (ICD-10-PCS; 2024-08-13)
PROC: 4A023N6 Measurement of Cardiac Sampling and Pressure, Right Heart, Percutaneous Approach (ICD-10-PCS; 2024-08-13)
DX: I50.21 Acute systolic (congestive) heart failure (principal); I42.8 Other cardiomyopathies; I51.3 Intracardiac thrombosis, not elsewhere classified; I08.1 Rheumatic disorders of both mitral and tricuspid valves; K76.1 Chronic passive congestion of liver; E66.811 Obesity, class 1; Z68.27 Body mass index [BMI] 27.0-27.9, adult; R73.03 Prediabetes; I25.10 Atherosclerotic heart disease of native coronary artery without angina pectoris; I27.20 Pulmonary hypertension, unspecified
CPT/HCPCS: 71046; 80048; 80053; 80061; 80076; 82607; 82728; 82746; 83036; 83540; 83550; 83735; 83880; 84443; 84466; 85025; 85027; 85730; 86704; 86705; 86706; 86803; 87340; 87389; 93005; 93306; 93456; 96374; 99152; 99153; 99285; C1894; Q9950; Q9967

== ENCOUNTER → 2024-11-03 09:02 | Outpatient (REF) | payer OTHER, SELFPAY | LOC: RAD 09:02 | PROVIDERS: ATTENDING PHYSICIAN Nurse Practitioner | DX: I42.8 Other cardiomyopathies (principal) | CPT/HCPCS: 70030 ==

== ENCOUNTER → 2024-11-10 08:13 | Outpatient (REF) | payer OTHER, SELFPAY | LOC: PAVMRI 08:13 | PROVIDERS: ATTENDING PHYSICIAN Nurse Practitioner Gerontology; FAMILY PHYSICIAN Physician Assistant | DX: I42.8 Other cardiomyopathies (principal) | CPT/HCPCS: 75561; 75565; A9585 ==

== ENCOUNTER → 2024-11-18 13:39 | Outpatient (REF) | payer OTHER, SELFPAY | LOC: RCS 13:39 | PROVIDERS: ATTENDING PHYSICIAN Nurse Practitioner; FAMILY PHYSICIAN Physician Assistant | DX: I51.3 Intracardiac thrombosis, not elsewhere classified (principal); I42.8 Other cardiomyopathies | CPT/HCPCS: 93308; 93321; 93325; Q9950 ==